=== PATIENT | male | born 1955 | race Caucasian/White ===

== ENCOUNTER 2017-12-01 17:32 | Emergency (ER) | payer MEDICARE, MEDICAID ==
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
[2017-12-01 17:57] VITALS: BP 127/73
[2017-12-01] MEDS: Haloperidol 5 MG Tab PO ONE ×2 (17:57→19:03)
[2017-12-01] MEDS: metFORMIN 500 MG Tab PO ONE ×2 (17:58→19:03)
[2017-12-01] MEDS: Sertraline 50 MG Tab PO ONE ×2 (17:58→19:03)
[2017-12-01] MEDS ORDERED: Haloperidol Lactate 5 MG/ML SDV IM ONE (18:05)
[2017-12-01] MEDS ORDERED: LORazepam 2 MG/ML MDV IM ONE ×2 (18:56→20:52)
== END 2017-12-01 21:14 | disposition other institution (70) ==
LOC: JP.ED 17:32
DX: F25.0 Schizoaffective disorder, bipolar type (principal); K21.9 Gastro-esophageal reflux disease without esophagitis; E11.9 Type 2 diabetes mellitus without complications; E66.9 Obesity, unspecified; Z88.8 Allergy status to other drugs, medicaments and biological substances; Z79.899 Other long term (current) drug therapy
CPT/HCPCS: 36415; 80048; 80305; 84443; 85027; 96372; 99285; G0480; J1630; J2060; 99283; A9270-GY

== ENCOUNTER 2017-12-10 12:49 | Emergency (ER) | payer MEDICARE, MEDICAID ==
[2017-12-10] MEDS ORDERED: Haloperidol Lactate 5 MG/ML SDV IM ONE ×2 (12:56→13:45)
[2017-12-10] MEDS ORDERED: diphenhydrAMINE 50 MG/ML SDV IM ONE ×2 (12:56→13:47)
[2017-12-10] MEDS ORDERED: LORazepam 2 MG/ML MDV IM ONE ×2 (12:57→13:46)
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
[2017-12-10 14:00] VITALS: BP 125/77
== END 2017-12-10 14:08 ==
LOC: JP.ED 12:49
DX: F25.0 Schizoaffective disorder, bipolar type (principal); F99 Mental disorder, not otherwise specified; E11.9 Type 2 diabetes mellitus without complications; E03.9 Hypothyroidism, unspecified; Z88.8 Allergy status to other drugs, medicaments and biological substances; Z79.899 Other long term (current) drug therapy
CPT/HCPCS: 36415; 82140; 96372; 96374; 99285; J1200; J1630; J2060

== ENCOUNTER 2019-02-28 04:46 | Emergency (ER) | payer MEDICARE, MEDICAID ==
[2019-02-28] MEDS ORDERED: Lactated Ringers 1,000 ML IV ONE (05:01)
[2019-02-28] MEDS ORDERED: Acetaminophen 500 MG Tab PO ONE (05:16)
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
[2019-02-28 05:25] VITALS: BP 152/95
== END 2019-02-28 05:40 | disposition left against medical advice (07) ==
LOC: JP.ED 04:46
DX: B34.9 Viral infection, unspecified (principal); F99 Mental disorder, not otherwise specified; F17.210 Nicotine dependence, cigarettes, uncomplicated; Z88.8 Allergy status to other drugs, medicaments and biological substances; Z79.899 Other long term (current) drug therapy
CPT/HCPCS: 36415; 80048; 84484; 85027; 86140; 99281; 99284

== ENCOUNTER 2020-09-21 21:05 | Emergency (ER) | payer MEDICAID, MEDICARE ==
[2020-09-21 21:32] VITALS: BP 133/76; PULSE 103
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
== END 2020-09-21 22:17 | disposition home or self-care (01) ==
LOC: JP.ED 21:05
DX: T16.1XXA Foreign body in right ear, initial encounter (principal); F31.9 Bipolar disorder, unspecified; E11.9 Type 2 diabetes mellitus without complications; E03.9 Hypothyroidism, unspecified; F20.9 Schizophrenia, unspecified; F17.210 Nicotine dependence, cigarettes, uncomplicated; E66.9 Obesity, unspecified; Z68.34 Body mass index [BMI] 34.0-34.9, adult; Z88.8 Allergy status to other drugs, medicaments and biological substances; Z79.899 Other long term (current) drug therapy
CPT/HCPCS: 69200; 99282-25

== ENCOUNTER 2020-10-06 18:25 | Emergency (ER) | payer MEDICAID, MEDICARE ==
[2020-10-06 19:01] VITALS: BP 136/83; PULSE 88
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
== END 2020-10-06 20:28 | disposition home or self-care (01) ==
LOC: JP.ED 18:25
DX: R35.0 Frequency of micturition (principal); E03.9 Hypothyroidism, unspecified; E11.9 Type 2 diabetes mellitus without complications; E66.9 Obesity, unspecified; F31.9 Bipolar disorder, unspecified; F17.210 Nicotine dependence, cigarettes, uncomplicated; Z90.49 Acquired absence of other specified parts of digestive tract; Z88.8 Allergy status to other drugs, medicaments and biological substances; Z91.09 Other allergy status, other than to drugs and biological substances; Z79.899 Other long term (current) drug therapy; Z68.33 Body mass index [BMI] 33.0-33.9, adult
CPT/HCPCS: 81001; 99282; 99283

== ENCOUNTER 2021-04-03 00:18 | Emergency (ER) | payer MEDICARE ==
[2021-04-03 01:23] VITALS: BP 122/79; PULSE 77
== END 2021-04-03 06:32 | disposition home or self-care (01) ==
LOC: JP.ED 00:18
DX: E09.65 Drug or chemical induced diabetes mellitus with hyperglycemia (principal); T38.0X5A Adverse effect of glucocorticoids and synthetic analogues, initial encounter
CPT/HCPCS: 82947; 99284

== ENCOUNTER 2022-02-11 23:07 | Emergency (ER) | payer MEDICARE ==
[2022-02-11] MEDS ORDERED: Alum Hydrox/Mag Hydrox/Simeth 15 ML, Lidocaine 2% 15 ML PO ONE ×2 (23:09)
[2022-02-11 23:24] VITALS: BP 141/92; PULSE 87
[2022-02-11] MEDS ORDERED: Pantoprazole 40 MG Tab.CR PO STA (23:44)
== END 2022-02-12 00:58 | disposition home or self-care (01) ==
LOC: JP.ED 23:07
DX: K21.9 Gastro-esophageal reflux disease without esophagitis (principal); E11.9 Type 2 diabetes mellitus without complications; E03.9 Hypothyroidism, unspecified; E66.9 Obesity, unspecified; Z68.33 Body mass index [BMI] 33.0-33.9, adult; Z88.8 Allergy status to other drugs, medicaments and biological substances; Z91.048 Other nonmedicinal substance allergy status; Z79.899 Other long term (current) drug therapy; Z79.84 Long term (current) use of oral hypoglycemic drugs
CPT/HCPCS: 36415; 74019; 74019-26; 80053; 83605; 83690; 85025; 99281; 99284-25; A9270-GY

== ENCOUNTER 2022-03-15 13:47 | Emergency (ER) | payer MEDICARE ==
[2022-03-15 15:23] VITALS: BP 155/82; PULSE 91
[2022-03-15] MEDS ORDERED: Alum Hydrox/Mag Hydrox/Simeth 15 ML, Lidocaine 2% 15 ML PO ONE ×2 (16:15)
== END 2022-03-15 18:00 | disposition home or self-care (01) ==
LOC: JP.ED 13:47
DX: K59.01 Slow transit constipation (principal); K21.9 Gastro-esophageal reflux disease without esophagitis; E11.9 Type 2 diabetes mellitus without complications; E03.9 Hypothyroidism, unspecified; F17.210 Nicotine dependence, cigarettes, uncomplicated; E66.9 Obesity, unspecified; Z68.33 Body mass index [BMI] 33.0-33.9, adult; Z91.048 Other nonmedicinal substance allergy status; Z88.8 Allergy status to other drugs, medicaments and biological substances; Z79.899 Other long term (current) drug therapy
CPT/HCPCS: 74019; 99281; 99284; A9270

== ENCOUNTER 2022-06-09 17:13 | Emergency (ER) | payer MEDICARE ==
[2022-06-09 21:33] VITALS: BP 143/86; PULSE 91
== END 2022-06-09 19:15 | disposition home or self-care (01) ==
LOC: JP.ED 17:13
DX: K92.1 Melena (principal); K21.9 Gastro-esophageal reflux disease without esophagitis; E11.9 Type 2 diabetes mellitus without complications; E03.9 Hypothyroidism, unspecified; E66.9 Obesity, unspecified; Z88.8 Allergy status to other drugs, medicaments and biological substances; Z91.048 Other nonmedicinal substance allergy status; Z79.899 Other long term (current) drug therapy; Z79.84 Long term (current) use of oral hypoglycemic drugs; Z68.33 Body mass index [BMI] 33.0-33.9, adult
CPT/HCPCS: 36415; 82272; 85018; 99284

== ENCOUNTER 2023-07-20 19:58 | Emergency (ER) | payer MEDICARE ==
[2023-07-20 20:55] LABS: BASOPHILS ABSOLUTE AUTO 0.04 K/uL (0.00-0.10); BASOPHILS PERCENT AUTO 0.5 % (0.1-1.3); EOSINOPHILS ABSOLUTE AUTO 0.15 K/uL (0.00-0.40); EOSINOPHILS PERCENT AUTO 1.9 % (0.0-5.4); IMMATURE GRAN ABSOLUTE AUTO 0.04 K/uL (0.00-0.23); IMMATURE GRAN PERCENT AUTO 0.5 % (0.0-0.7); LYMPHOCYTES ABSOLUTE AUTO 2.72 K/uL (0.8-3.3); LYMPHOCYTES PERCENT AUTO 33.8 % (11.4-47.7); MEAN CORPUSCULAR HEMOGLOBIN 30.3 pg (31.6-35.5); MEAN CORPUSCULAR HGB CONC 34.9 g/dL (31.6-35.5); MEAN CORPUSCULAR VOLUME 86.9 fL (81.4-99.0); MONOCYTES ABSOLUTE AUTO 0.82 K/uL (0.20-0.90); MONOCYTES PERCENT AUTO 10.2 % (3.3-12.6); NEUTROPHILS ABSOLUTE AUTO 4.28 K/uL (1.0-7.6); NEUTROPHILS PERCENT AUTO 53.1 % (40.0-78.1); PLATELET COUNT,PLT 177 K/uL (130-375); RED BLOOD CELL COUNT 4.95 M/uL (4.14-5.76); WHITE BLOOD CELL COUNT,WBC 8.1 K/uL (3.2-11.0)
[2023-07-20 21:15] LABS: INR 1.1; PROTHROMBIN TIME 10.8 sec (9.2-10.6); PTT,PARTIAL THROMBOPLSTIN TIME 27.7 sec (21.8-27.3)
[2023-07-20 21:19] VITALS: PULSE 86
[2023-07-20 21:19] LABS: CALCIUM 8.3 mg/dL (8.5-10.1); EST CRCL DRUG DOSING (CG) 63.8 mL/min; POTASSIUM,K 4.5 mmol/L (3.6-5.2)
[2023-07-20 21:20] LABS: ANION GAP 13.5 mmol/L (5.0-14.0)
[2023-07-20 21:55] VITALS: BP 131/81
== END 2023-07-20 22:24 | disposition home or self-care (01) ==
LOC: JP.ED 19:58
DX: R07.89 Other chest pain (principal); E11.69 Type 2 diabetes mellitus with other specified complication; F25.0 Schizoaffective disorder, bipolar type; E03.9 Hypothyroidism, unspecified; E66.9 Obesity, unspecified; Z88.8 Allergy status to other drugs, medicaments and biological substances; Z88.6 Allergy status to analgesic agent; Z91.048 Other nonmedicinal substance allergy status; Z79.84 Long term (current) use of oral hypoglycemic drugs; Z79.899 Other long term (current) drug therapy; Z68.32 Body mass index [BMI] 32.0-32.9, adult
CPT/HCPCS: 36415; 71045; 71045-26; 80048; 84145; 84484; 85025; 85610; 85730; 93005; 93010; 99283; 99285

== ENCOUNTER 2023-09-04 18:40 | Emergency (ER) | payer MEDICARE ==
[2023-09-04 19:53] VITALS: BP 142/86; PULSE 92
== END 2023-09-04 20:40 | disposition home or self-care (01) ==
LOC: JP.ED 18:40
DX: K04.7 Periapical abscess without sinus (principal); K21.9 Gastro-esophageal reflux disease without esophagitis; E11.9 Type 2 diabetes mellitus without complications; E03.9 Hypothyroidism, unspecified; E66.9 Obesity, unspecified; Z68.31 Body mass index [BMI] 31.0-31.9, adult; Z88.1 Allergy status to other antibiotic agents; Z88.8 Allergy status to other drugs, medicaments and biological substances; Z79.899 Other long term (current) drug therapy; Z79.84 Long term (current) use of oral hypoglycemic drugs
CPT/HCPCS: 99282

== ENCOUNTER 2023-09-29 22:48 | Emergency (ER) | payer MEDICARE ==
[2023-09-29] MEDS ORDERED: Aspirin 81 MG Tab.Chew PO ONE (22:50)
[2023-09-29 23:07] VITALS: BP 122/76; PULSE 75
[2023-09-29 23:07] LABS: BASOPHILS ABSOLUTE AUTO 0.03 K/uL (0.00-0.10); BASOPHILS PERCENT AUTO 0.4 % (0.1-1.3); EOSINOPHILS ABSOLUTE AUTO 0.18 K/uL (0.00-0.40); EOSINOPHILS PERCENT AUTO 2.3 % (0.0-5.4); HEMATOCRIT 43.1 % (38.4-49.7); HEMOGLOBIN 15.1 g/dL (12.9-16.9); IMMATURE GRAN ABSOLUTE AUTO 0.04 K/uL (0.00-0.23); IMMATURE GRAN PERCENT AUTO 0.5 % (0.0-0.7); LYMPHOCYTES ABSOLUTE AUTO 3.24 K/uL (0.8-3.3); LYMPHOCYTES PERCENT AUTO 40.9 % (11.4-47.7); MEAN CORPUSCULAR HEMOGLOBIN 30.4 pg (31.6-35.5); MEAN CORPUSCULAR VOLUME 86.7 fL (81.4-99.0); MONOCYTES ABSOLUTE AUTO 0.75 K/uL (0.20-0.90); MONOCYTES PERCENT AUTO 9.5 % (3.3-12.6); NEUTROPHILS ABSOLUTE AUTO 3.68 K/uL (1.0-7.6); NEUTROPHILS PERCENT AUTO 46.4 % (40.0-78.1); PLATELET COUNT,PLT 160 K/uL (130-375); RED BLOOD CELL COUNT 4.97 M/uL (4.14-5.76); WHITE BLOOD CELL COUNT,WBC 7.9 K/uL (3.2-11.0)
[2023-09-29 23:30] LABS: A/G RATIO 0.8 (1.2-2.2); ALANINE AMINOTRANSFERASE,ALT 23 U/L (12-78); ALBUMIN 3.2 g/dL (3.4-5.0); ALKALINE PHOSPHATASE 74 U/L (46-116); ANION GAP 13.6 mmol/L (5.0-14.0); ASPARTATE AMNIOTRANSFERASE,AST 21 U/L (15-37); BILIRUBIN TOTAL 0.3 mg/dL (0.2-1.0); BLOOD UREA NITROGEN,BUN 26 mg/dL (7-18); CALCIUM 8.4 mg/dL (8.5-10.1); CARBON DIOXIDE,CO2 28 mmol/L (21-32); CHLORIDE,CL 100 mmol/L (100-108); ESTIMATED GFR 82 mL/min (>60); GLUCOSE RANDOM 90 mg/dL (74-106); POTASSIUM,K 4.6 mmol/L (3.6-5.2); SODIUM,NA 137 mmol/L (140-148); TROPONIN I HIGH SENSITIVITY 9.9 pg/mL (<=60.3)
[2023-09-29 23:31] LABS: C-REACTIVE PROTEIN < 0.50 mg/dL (<0.50)
== END 2023-09-30 00:07 | disposition home or self-care (01) ==
LOC: JP.ED 22:48
DX: I25.118 Atherosclerotic heart disease of native coronary artery with other forms of angina pectoris (principal); F25.0 Schizoaffective disorder, bipolar type; E11.9 Type 2 diabetes mellitus without complications; I25.2 Old myocardial infarction; F17.210 Nicotine dependence, cigarettes, uncomplicated; Z90.49 Acquired absence of other specified parts of digestive tract; Z79.82 Long term (current) use of aspirin; Z79.84 Long term (current) use of oral hypoglycemic drugs; Z79.899 Other long term (current) drug therapy; Z88.5 Allergy status to narcotic agent; Z88.8 Allergy status to other drugs, medicaments and biological substances; Z91.048 Other nonmedicinal substance allergy status
CPT/HCPCS: 36415; 80053; 84484; 85025; 86140; 93005; 99285; U0002

== ENCOUNTER 2024-06-23 11:49 | Emergency (ER) | payer MEDICARE ==
[2024-06-23 12:24] VITALS: BP 155/91; PULSE 97
== END 2024-06-23 13:28 | disposition home or self-care (01) ==
LOC: JP.ED 11:49
DX: G47.00 Insomnia, unspecified (principal); F25.0 Schizoaffective disorder, bipolar type; I25.10 Atherosclerotic heart disease of native coronary artery without angina pectoris; E11.9 Type 2 diabetes mellitus without complications; I10 Essential (primary) hypertension; I25.2 Old myocardial infarction; F17.210 Nicotine dependence, cigarettes, uncomplicated; Z90.49 Acquired absence of other specified parts of digestive tract; Z79.1 Long term (current) use of non-steroidal anti-inflammatories (NSAID); Z79.890 Hormone replacement therapy; Z79.84 Long term (current) use of oral hypoglycemic drugs; Z79.899 Other long term (current) drug therapy; Z88.6 Allergy status to analgesic agent; Z88.8 Allergy status to other drugs, medicaments and biological substances
CPT/HCPCS: 99283; 99284

== ENCOUNTER 2024-06-25 08:25 | Emergency (ER) | payer MEDICARE ==
[2024-06-25 08:47] LABS: BASOPHILS ABSOLUTE AUTO 0.03 K/uL (0.00-0.10); BASOPHILS PERCENT AUTO 0.4 % (0.1-1.3); EOSINOPHILS PERCENT AUTO 1.2 % (0.0-5.4); HEMATOCRIT 41.6 % (38.4-49.7); HEMOGLOBIN 15.4 g/dL (12.9-16.9); IMMATURE GRAN ABSOLUTE AUTO 0.09 K/uL (0.00-0.23); IMMATURE GRAN PERCENT AUTO 1.1 % (0.0-0.7); LYMPHOCYTES ABSOLUTE AUTO 2.46 K/uL (0.8-3.3); LYMPHOCYTES PERCENT AUTO 30.1 % (11.4-47.7); MEAN CORPUSCULAR HEMOGLOBIN 31.2 pg (31.6-35.5); MEAN CORPUSCULAR VOLUME 84.2 fL (81.4-99.0); MONOCYTES ABSOLUTE AUTO 0.78 K/uL (0.20-0.90); MONOCYTES PERCENT AUTO 9.5 % (3.3-12.6); NEUTROPHILS ABSOLUTE AUTO 4.71 K/uL (1.0-7.6); NEUTROPHILS PERCENT AUTO 57.7 % (40.0-78.1); PLATELET COUNT,PLT 150 K/uL (130-375); RED BLOOD CELL COUNT 4.94 M/uL (4.14-5.76); WHITE BLOOD CELL COUNT,WBC 8.2 K/uL (3.2-11.0)
[2024-06-25 09:06] LABS: A/G RATIO 0.7 (1.2-2.2); ALANINE AMINOTRANSFERASE,ALT 32 U/L (12-78); ALBUMIN 3.2 g/dL (3.4-5.0); ALKALINE PHOSPHATASE 69 U/L (46-116); ANION GAP 17.4 mmol/L (5.0-14.0); ASPARTATE AMNIOTRANSFERASE,AST 36 U/L (15-37); BILIRUBIN TOTAL 0.6 mg/dL (0.2-1.0); BLOOD UREA NITROGEN,BUN 28 mg/dL (7-18); CALCIUM 8.8 mg/dL (8.5-10.1); CARBON DIOXIDE,CO2 24 mmol/L (21-32); CHLORIDE,CL 94 mmol/L (100-108); CREATININE 1.2 mg/dL (0.8-1.3); EST CRCL DRUG DOSING (CG) 63.77 mL/min; ESTIMATED GFR 65 mL/min (>60); GLUCOSE RANDOM 193 mg/dL (74-106); POTASSIUM,K 4.4 mmol/L (3.6-5.2); PROTEIN TOTAL,TP 7.5 g/dL (6.4-8.2); SODIUM,NA 131 mmol/L (140-148)
[2024-06-25 11:45] LABS: APPEARANCE,URINE CLEAR (CLEAR); BILIRUBIN,URINE NEGATIVE (NEGATIVE); COLOR,URINE YELLOW (YELLOW); GLUCOSE,URINE NEGATIVE (NEGATIVE); KETONES,URINE NEGATIVE (NEGATIVE); LEUKOCYTE ESTERASE,URINE NEGATIVE (NEGATIVE); NITRITE,URINE NEGATIVE (NEGATIVE); OCCULT BLOOD,URINE NEGATIVE (NEGATIVE); PH,URINE 6.5 (5.0-8.0); PROTEIN,URINE NEGATIVE (NEGATIVE)
[2024-06-25 11:51] LABS: BACTERIA,URINE NOT SEEN; EPITHELIAL CELLS,URINE NOT SEEN; MUCUS,URINE RARE; RBC,URINE NOT SEEN (0-5); WBC,URINE NOT SEEN (0-5)
[2024-06-25] MEDS: levETIRAcetam 500 MG/5 ML SDV IVPUSH ONE (13:34)
[2024-06-25 14:53] VITALS: PULSE 93
[2024-06-25 14:55] VITALS: BP 118/73
== END 2024-06-25 15:00 ==
LOC: JP.ED 08:25
DX: G40.909 Epilepsy, unspecified, not intractable, without status epilepticus (principal); I10 Essential (primary) hypertension; E11.9 Type 2 diabetes mellitus without complications; Z90.49 Acquired absence of other specified parts of digestive tract; Z79.899 Other long term (current) drug therapy; Z88.8 Allergy status to other drugs, medicaments and biological substances
CPT/HCPCS: 36415; 70450; 80053; 80164; 81001; 83605; 85025; 96374; 99285; J1953; 99284

== ENCOUNTER 2024-08-01 09:14 | Emergency (ER) | payer MEDICARE ==
[2024-08-01 09:52] VITALS: BP 118/84; PULSE 84
== END 2024-08-01 10:37 | disposition home or self-care (01) ==
LOC: JP.ED 09:14
DX: R22.0 Localized swelling, mass and lump, head (principal); I10 Essential (primary) hypertension; E11.9 Type 2 diabetes mellitus without complications; Z90.49 Acquired absence of other specified parts of digestive tract; Z79.899 Other long term (current) drug therapy; Z79.84 Long term (current) use of oral hypoglycemic drugs; Z88.8 Allergy status to other drugs, medicaments and biological substances
CPT/HCPCS: 99283

== ENCOUNTER 2024-12-07 15:04 | Emergency (ER) | payer MEDICARE ==
[2024-12-07] MEDS: LORazepam 2 MG/ML SDV IM ONE (15:36)
[2024-12-07] MEDS: Haloperidol Lactate 5 MG/ML SDV IM ONE (15:36)
[2024-12-07] MEDS ORDERED: Prochlorperazine 10 MG Tab PO PRN (16:52)
[2024-12-07] MEDS ORDERED: Nitroglycerin 0.4 MG Tab.SL SL PRN (16:54)
[2024-12-07] MEDS ORDERED: diphenhydrAMINE 25 MG Cap PO PRN (16:55)
[2024-12-07] MEDS ORDERED: Ondansetron 4 MG Tab.DIS PO PRN (16:56)
[2024-12-07] MEDS ORDERED: risperiDONE Solution 1 MG/1 ML 30 ML Bottle PO SCH (17:00)
[2024-12-07] MEDS ORDERED: Morphine 15 MG Tab PO PRN (17:05)
[2024-12-07] MEDS ORDERED: Morphine 10 MG/0.5 ML Oral Syringe PO PRN (17:14)
[2024-12-07] MEDS: Divalproex Sodium 250 MG Tab.ER PO ONE (17:36)
[2024-12-07] MEDS: LORazepam 1 MG Tab PO PRN (17:37)
[2024-12-07] MEDS: OLANZapine 5 MG Tab PO SCH (20:08)
[2024-12-07] MEDS: Sennosides 8.6 MG Tab PO SCH (20:09)
[2024-12-07] MEDS: risperiDONE 1 MG Tab PO SCH (20:09)
[2024-12-08] MEDS: OLANZapine 10 MG Vial IM ONE (08:19)
[2024-12-08] MEDS: diphenhydrAMINE 50 MG/ML SDV IM ONE ×2 (11:37→21:30)
[2024-12-08] MEDS: LORazepam 2 MG/ML SDV IM ONE ×2 (11:37→21:30)
[2024-12-08] MEDS: LORazepam 2 MG/ML SDV IM PRN ×2 (15:03→20:25)
[2024-12-08] MEDS ORDERED: RISPERIDONE 3 MG PO SCH (21:00)
[2024-12-08] MEDS: Haloperidol Lactate 5 MG/ML SDV IM ONE (21:31)
[2024-12-08] MEDS: Divalproex Sodium 250 MG Tab.ER PO SCH (21:31)
[2024-12-09] MEDS: OLANZapine 10 MG Vial IM SCH (08:48)
[2024-12-09] MEDS ORDERED: OLANZapine 10 MG Vial IM SCH (09:00)
[2024-12-09] MEDS: Divalproex Sodium Delayed-Release 125 MG Cap.Sprink PO SCH (17:08)
[2024-12-09] MEDS: RISPERIDONE 1 MG/1 ML PO SCH (23:04)
[2024-12-09] MEDS: LORazepam 2 MG/ML SDV IM ONE (23:05)
[2024-12-10] MEDS: LORazepam 2 MG/ML SDV IM PRN (02:00)
[2024-12-10] MEDS: OLANZapine 10 MG Vial IM SCH (19:20)
[2024-12-11] MEDS: LORazepam 1 MG Tab PO PRN (13:10)
[2024-12-13] MEDS: risperiDONE 1 MG Tab PO SCH (21:59)
[2024-12-15] MEDS: LORazepam 2 MG/ML SDV IM PRN (03:41)
[2024-12-17] MEDS: OLANZapine 10 MG Vial IM ONE (05:24)
[2024-12-18] MEDS: LORazepam 1 MG Tab PO PRN (02:32)
[2024-12-19] MEDS: Acetaminophen 500 MG Tab PO PRN (02:40)
[2024-12-21] MEDS: Aluminum Hydroxide/Magnesium Hydroxide/Simethicone Susp 30 ML Cup PO PRN (09:34)
[2024-12-22 07:51] VITALS: BP 136/88; PULSE 99
== END 2024-12-22 10:50 | disposition home or self-care (01) ==
LOC: JP.ED 15:04
DX: F32.A Depression, unspecified (principal); E11.9 Type 2 diabetes mellitus without complications; I25.2 Old myocardial infarction; I10 Essential (primary) hypertension; Z88.6 Allergy status to analgesic agent; Z91.048 Other nonmedicinal substance allergy status; Z79.899 Other long term (current) drug therapy
CPT/HCPCS: 70450; 96372; 97162-GP; 99285; A9270-GY; J1200; J1630; J2060; J2359

== ENCOUNTER 2025-05-19 15:47 | Emergency (ER) | payer MEDICARE ==
[2025-05-19 17:03] VITALS: BP 137/84
[2025-05-19] MEDS: methylPREDNISolone Sodium Succinate 40 MG/1 ML SDV IVPUSH ONE (18:18)
[2025-05-19] MEDS: Ketorolac 30 MG/ML SDV IVPUSH ONE (18:19)
[2025-05-20] MEDS ORDERED: LORazepam ORAL Concentrate 1MG/0.5ML U/D PO PRN (00:36)
[2025-05-20] MEDS ORDERED: Non-Formulary Medication 1 Each (Divalproex Sodium [Divalproex Sodium Er] 500 MG Tab.Er.24 PO SCH (00:45)
[2025-05-20] MEDS ORDERED: RISPERIDONE 3 MG PO SCH (00:45)
[2025-05-20 09:14] VITALS: PULSE 80
[2025-05-20] MEDS: Non-Formulary Medication 1 Each (Olanzapine [Olanzapine] 10 MG Tablet) PO SCH (10:07)
[2025-05-20] MEDS ORDERED: ACETAMINOPHEN 650 MG PO SCH (21:00)
== END 2025-05-20 12:09 ==
LOC: JP.ED 15:47
DX: F25.0 Schizoaffective disorder, bipolar type (principal); I25.2 Old myocardial infarction; I10 Essential (primary) hypertension; E11.9 Type 2 diabetes mellitus without complications; F17.200 Nicotine dependence, unspecified, uncomplicated; Z90.49 Acquired absence of other specified parts of digestive tract; Z88.6 Allergy status to analgesic agent; Z88.8 Allergy status to other drugs, medicaments and biological substances; Z79.84 Long term (current) use of oral hypoglycemic drugs; Z79.899 Other long term (current) drug therapy
CPT/HCPCS: 96372; 99284; A9270; J2359

== ENCOUNTER 2025-05-20 17:01 | Emergency (ER) | payer MEDICARE ==
[2025-05-20] MEDS ORDERED: Sennosides/Docusate Sodium 50-8.6 MG Tab PO PRN (20:45)
[2025-05-20] MEDS ORDERED: ONDANSETRON 8 MG PO PRN (20:45)
[2025-05-20] MEDS ORDERED: DIPHENHYDRAMINE HCL 25 MG PO PRN (20:45)
[2025-05-20] MEDS ORDERED: LORazepam ORAL Concentrate 1MG/0.5ML U/D PO PRN (20:45)
[2025-05-20] MEDS ORDERED: Non-Formulary Medication 1 Each (Olanzapine [Olanzapine] 10 MG Tablet) PO SCH (21:00)
[2025-05-20] MEDS ORDERED: Non-Formulary Medication 1 Each (Divalproex Sodium [Divalproex Sodium Er] 500 MG Tab.Er.24 PO SCH (21:00)
[2025-05-20] MEDS ORDERED: RISPERIDONE 3 MG PO SCH (21:00)
[2025-05-20] MEDS ORDERED: Ondansetron 4 MG Tab.DIS PO PRN (21:14)
[2025-05-21] MEDS: ACETAMINOPHEN 650 MG PO SCH (07:11)
[2025-05-21] MEDS: Bacitracin Oint 1 GM U/D Packet TOP ONE (07:34)
[2025-05-21] MEDS: Lidocaine 2% Viscous Solution 15 ML UD PO PRN (07:34)
[2025-05-23 03:57] VITALS: BP 140/87; PULSE 81
== END 2025-05-23 15:44 ==
LOC: JP.ED 17:01
DX: R45.6 Violent behavior (principal); I10 Essential (primary) hypertension; I25.2 Old myocardial infarction; F17.210 Nicotine dependence, cigarettes, uncomplicated; Z79.899 Other long term (current) drug therapy; Z79.84 Long term (current) use of oral hypoglycemic drugs; Z88.5 Allergy status to narcotic agent; Z88.8 Allergy status to other drugs, medicaments and biological substances; Z91.048 Other nonmedicinal substance allergy status
CPT/HCPCS: 99285; A9270; 96372; 99284; J2359

== ENCOUNTER 2025-07-05 19:35 | Emergency (ER) | payer MEDICARE ==
[2025-07-05 20:08] VITALS: BP 144/100; PULSE 88
== END 2025-07-05 20:20 ==
LOC: JP.ED 19:35
DX: R46.89 Other symptoms and signs involving appearance and behavior (principal); I10 Essential (primary) hypertension; I25.2 Old myocardial infarction; I25.10 Atherosclerotic heart disease of native coronary artery without angina pectoris; E11.9 Type 2 diabetes mellitus without complications; M19.90 Unspecified osteoarthritis, unspecified site; Z79.899 Other long term (current) drug therapy; Z88.6 Allergy status to analgesic agent; Z88.8 Allergy status to other drugs, medicaments and biological substances; Z90.49 Acquired absence of other specified parts of digestive tract
CPT/HCPCS: 99283